=== PATIENT | male | born 1950 | race Caucasian/White ===

== ENCOUNTER → 2017-08-11 | Outpatient (CLI) | payer MEDICARE, OTHER ==
[~2017-08-11] MED LIST: CLON1TAB69 PO; HYDR1TAB66 PO; OMEP20TA2 PO
--- NOTE | 2017-08-11 20:30 | Diagnostic Imaging Report ---
INDICATION: Low back pain with sciatica, increasing over the past couple of days. TECHNIQUE: AP, Lateral and Spot imaging of the lumbar spine CORRELATION STUDY: None FINDINGS: Grade 2 spondylolisthesis of L5 on S1 with approximately 12 mm of offset. Alignment otherwise with some straightening. Lumbar vertebral body heights demonstrate no acute appearing compression deformity. Marked disc space narrowing at all lumbar disc levels. Endplate osteophyte formation including rather prominent bridging osteophytes noted most pronounced at L2-L3, L3-L4 and L4-L5 levels. Hypertrophic facet arthropathy at L4-5 and L5-S1 levels. Endplate lipping and hypertrophic changes, likely results in some degree of foraminal and/or canal narrowing. IMPRESSION: No radiographic evidence for acute bony abnormality of the lumbar spine. Rather advanced multilevel lumbar spondylosis with marked disc space narrowing. Bridging osteophytes are noted at multiple levels. Additionally, there is endplate osteophyte and hypertrophic facet arthropathy, likely resulting in various degrees of spinal canal and/or foraminal narrowing. Given symptoms and overall findings, if further assessment is desired, MRI would likely be of additional diagnostic benefit. Dictated by: Dictated on workstation # [id number]
== END ==
LOC: RAD 19:45
PROVIDERS: ATTEND Nurse Practitioner Family
DX: M47.816 Spondylosis without myelopathy or radiculopathy, lumbar region (principal); M51.16 Intervertebral disc disorders with radiculopathy, lumbar region; M46.86 Other specified inflammatory spondylopathies, lumbar region
CPT/HCPCS: 72100